=== PATIENT | male | born 1975 | race Caucasian/White ===

== ENCOUNTER 2019-12-28 07:52 | Emergency (ER) | payer SELFPAY ==
--- NOTE | 2019-12-28 08:24 | PDOC ---
Rapid Medical Evaluation Time Seen by Provider: 12/28/19 08:14 Medical Evaluation: Allergies Allergy/AdvReac Type Severity Reaction Status Date / Time No Known Allergies Allergy Verified 12/28/19 08:15 12/28/19 08:15 CC: 1 1/2 months of vomiting, weakness, decreased taste, denies med hx, no pcp visit in 7 years Exam: elevated BP, no abd tenderness, Plan: labs, urine, cxr Discharge Disposition - Diagnosis Vomiting - Referrals - Patient Instructions - Post Discharge Activity
[2019-12-28] MEDS ORDERED: SODIUM CHLORIDE 1,000 ML IV STA ×2 (08:25→10:42)
[2019-12-28] MEDS ORDERED: PANTOPRAZOLE SODIUM 40 MG VIAL IVPUSH ONE (08:25)
[2019-12-28] MEDS ORDERED: PANTOPRAZOLE SODIUM 40 MG VIAL ONE (08:44)
[2019-12-28] MEDS ORDERED: ONDANSETRON 4 MG/2 ML VIAL IVPUSH ONE (08:49)
--- NOTE | 2019-12-28 08:50 | PDOC ---
History of Present Illness - General Chief Complaint: Nausea/Vomiting Stated Complaint: WEAKNESS Time Seen by Provider: 12/28/19 08:14 History Source: Patient - History of Present Illness Initial Comments: 12/28/19 09:51 44 yo male no known sig medical hx (from [place], has not seen a Doctor for 7 years) presents to the ED for 45 days of generalized weakness, nausea without vomiting and increased urination. Pt states he has never had similar symptoms in the past, denies CP, SOB, abdominal pain, fevers, changes in bowel or bladder habits. Pt states he does not have insurance and does not have a way to see a Doctor on discharge Past History - Medical History Allergies/Adverse Reactions: Allergies Allergy/AdvReac Type Severity Reaction Status Date / Time No Known Allergies Allergy Verified 12/28/19 08:15 Home Medications: Ambulatory Orders Metformin HCl [Glucophage] 500 mg PO BID #14 tablet 12/28/19 COPD: No - Immunization History Immunization Up to Date: No - Psycho-Social/Smoking History Smoking History: Never smoked - Substance Abuse Hx (Audit-C & DAST Scrn) How often the patient has a drink containing alcohol: Never Score: In Men: 4 or > Positive; In Women: 3 or > Positive: 0 Screen Result (Pos requires Nsg. Audit-10AR): Negative In the last yr the pt used illegal drug/Rx for NonMed reason: No Score: Yes response is considered Positive: 0 Screen Result (Positive result requires Nsg. DAST-10): Negative Review of Systems - Review of Systems Constitutional: Yes: Symptoms Reported HEENTM: Yes: Symptoms Reported Respiratory: Yes: Symptoms reported Cardiac (ROS): Yes: Symptoms Reported ABD/GI: Yes: Symptoms Reported : Yes: Symptoms Reported Musculoskeletal: Yes: Symptoms Reported Integumentary: Yes: Symptoms Reported Neurological: Yes: Symptoms reported *Physical Exam - Vital Signs Last Vital Signs Temp Pulse Resp BP Pulse Ox 78 20 162/110 H 97 12/28/19 08:18 12/28/19 08:18 12/28/19 08:18 12/28/19 08:18 - Physical Exam General Appearance: Yes: Nourished, Appropriately Dressed. No: Apparent Distress HEENT: positive: EOMI, JONA Neck: positive: Supple. negative: Carotid bruit Respiratory/Chest: positive: Lungs Clear, Normal Breath Sounds. negative: Respiratory Distress, Accessory Muscle Use, Rapid RR, Crackles, Rales, Rhonchi, Stridor, Wheezing Vascular Pulses: Dorsalis-Pedis (R): 4+, Doralis-Pedis (L): 4+ Gastrointestinal/Abdominal: positive: Flat, Soft. negative: Pulsatile Mass, Protuberent, Distended, Guarding, Rebound, Tenderness Musculoskeletal: negative: CVA Tenderness Extremity: positive: Normal Capillary Refill, Normal Inspection, Normal Range of Motion Integumentary: positive: Normal Color, Dry, Warm Neurologic: positive: shaft tender II-XII NML intact, Fully Oriented, Alert, Normal Mood/Affect, Normal Response, Motor Strength 11/02 ED Treatment Course - LABORATORY CBC & Chemistry Diagram: 12/28/19 09:00 12/28/19 09:00 - ADDITIONAL ORDERS Additional order review: Laboratory Results 12/28/19 08:32 POC Glucometer 291 12/28/19 08:32 POC Glucometer 291 Medical Decision Making - Medical Decision Making 12/28/19 08:48 44 yo male no known sig medical hx (from [place], [place] years, has not seen a Doctor for 7 years) presents to the ED for 45 days of generalized weakness, nausea without vomiting and increased urination. Pt states he has never had similar symptoms in the past, denies CP, SOB, abdominal pain, fevers, changes in bowel or bladder habits. Pt states he does not have insurance and does not have a way to see a Doctor on discharge French speaking patient, hurricane tracker number [id number] Frederic Vitals show increased BP to 162 otherwise unremarkable Finger stick BG elevated, will do labs to r/o DKA. Give 1L NS Labs neg for anion gap, pH WNL beta hydroxybuterate elevated and BS 299 Will give 1 more L NS and reassess BG EKG NSR without signs of acute ischemia 12/28/19 13:10 Improved BS to 200 from 299 after 2L NS Pt reports improvement of symptoms Called Primary Clinic state [facility] pt can follow up on Sat at 2 pm Pt given Metformin from in hospital pharmacy Pt given strict discharge instructions, pt understands DC plan Discharge - Discharge Information Problems reviewed: Yes Clinical Impression/Diagnosis: Vomiting, New onset type 2 diabetes mellitus Disposition: HOME - Admission No - Additional Discharge Information Prescriptions: Metformin HCl [Glucophage] 500 mg PO BID #14 tablet - Follow up/Referral Referrals: [facility] [place] [Provider Group] - Patient Discharge Instructions Patient Printed Discharge Instructions: Type 2 Diabetes Additional Instructions: Please make it to your appointment this week with the primary doctor referred to you. Take the medication Metformin as prescribed 2 times per day until you see the primary doctor. Return to the ER for new or concerning symptoms. Thank you Print Language: SLOVAK - Post Discharge Activity
[2019-12-28 09:04] VITALS: BMI 27.9
[2019-12-28 09:46] LABS: BASO % 0.6 % (0-2.0); EOS % 0.4 % (0-4.5); HEMATOCRIT 52.1 % (35.4-49); HEMOGLOBIN 17.4 GM/dL (11.7-16.9); LYMPH % 24.8 % (8-40); MCH 28.8 pg (25.7-33.7); MCHC 33.5 g/dl (32.0-35.9); MEAN CELL VOLUME 85.9 fl (80-96); MEAN PLT VOLUME 9.6 fl (7.5-11.1); MONO % 6.1 % (3.8-10.2); NEUT % 68.1 % (42.8-82.8); PLATELET COUNT 263 K/MM3 (134-434); RBC 6.06 M/mm3 (4.00-5.60); RDW 13.1 % (11.9-15.9); WHITE BLOOD COUNT 9.5 K/mm3 (4.0-10.0)
[2019-12-28 09:50] LABS: VENOUS BASE EXCESS -1.7 mmol/L (-2-2); VENOUS O2 SATURATION 77.4 % (70-80); VENOUS PCO2 50.2 mmHg (38-52); VENOUS PH 7.321 (7.310-7.410)
[2019-12-28 10:10] LABS: URINE APPEARANCE Clear; URINE BILIRUBIN Negative (NEGATIVE); URINE COLOR Yellow; URINE GLUCOSE (UA) 2+ (NEGATIVE); URINE KETONE 1+ (NEGATIVE); URINE LEUK ESTERASE Negative (NEGATIVE); URINE NITRITE Negative (NEGATIVE); URINE PROTEIN 1+ (NEGATIVE); URINE UROBILINOGEN 0.2 mg/dL (0.2-1.0)
[2019-12-28 10:14] LABS: ALBUMIN 4.1 g/dl (3.4-5.0); BLOOD UREA NITROGEN 12.6 mg/dL (7-18); CALCIUM 9.2 mg/dL (8.5-10.1); MAGNESIUM 2.1 mg/dL (1.8-2.4); POTASSIUM 4.2 mmol/L (3.5-5.1); TOT PROT 8.5 g/dl (6.4-8.2)
[2019-12-28 10:16] LABS: BILIRUBIN,TOTAL 0.6 mg/dL (0.2-1)
--- NOTE | 2019-12-28 11:13 | EKG ---
Test Reason : Blood Pressure : / mmHG Vent. Rate : 057 BPM Atrial Rate : 057 BPM P-R Int : 156 ms QRS Dur : 094 ms QT Int : 414 ms P-R-T Axes : 053 -13 007 degrees QTc Int : 402 ms SINUS BRADYCARDIA MINIMAL VOLTAGE CRITERIA FOR LVH, MAY BE NORMAL VARIANT BORDERLINE ECG NO PREVIOUS ECGS AVAILABLE Confirmed by MERVIN EUCEDA MD ([id number]) on 12/28/2019 11:13:19 AM Referred By: Confirmed By:MERVIN EUCEDA MD
--- NOTE | 2019-12-28 11:58 | PDOC ---
Attending Attestation - Resident Resident Name: Jose A Harvey - ED Attending Attestation I have performed the following: I have examined & evaluated the patient, The case was reviewed & discussed with the resident, I agree w/resident's findings & plan, Exceptions are as noted - HPI HPI: 12/28/19 11:52 44 yo male no known pmhx here with c/o bad taste in mouth, and polyuria, polydipsia, and nausea. no vomiting. does report some amount of weight loss, unsure of amount but clothes fitting much bigger recently. no cp no sob. no f/c no abd pain. no change to stool. no vision changes. no headache. pt states he moved here from [place] 7 yrs ago, has not seen a doctor in that time. no other current complaints. no dysuria. no sick contacts. - Physicial Exam PE: 12/28/19 11:55 Awake alert no acute distress lungs are clear bilaterally heart is regular without any murmurs rubs or gallops abdomen is soft and nontender extremities are warm well perfused patient is awake alert and oriented x3 skin is warm and dry no rash - Medical Decision Making 12/28/19 11:55 44-year-old male no past medical history but no primary physician here today complaining of polyuria polydipsia and nausea. Differential includes hyperglycemia DKA hyperosmolar syndrome, anemia, dehydration, TX considered due to possibly of new diagnosis of diabetes and overall fatigue on exam patient is neurologically fully intact and has a nontender abdomen. Plan CBC CMP hemoglobin A1c beta hydroxybutyrate patient was given 2 L of normal saline as well as 4 mg of Zofran for his nausea. EKG was obtained showing a normal sinus rhythm with mild bradycardia rate of 57 T wave inversions in lead III and flattened aVF otherwise nonspecific changes 12/28/19 17:40 pt was given metformin. scheduled appointment with patient for next few days with maria luz joseph 12/28/19 17:40 hgb A1c is 11. Heart Score/ECG Review #1 General ECG Interpretation: Sinus Rhythm, Normal Rate, Normal Intervals, No acute ischemic changes (TWI III, flattened AVF. left axis. sinus bradycardia.) Discharge - Discharge Information Problems reviewed: Yes Clinical Impression/Diagnosis: Vomiting, New onset type 2 diabetes mellitus Disposition: HOME - Additional Discharge Information Prescriptions: Metformin HCl [Glucophage] 500 mg PO BID #14 tablet - Follow up/Referral Referrals: [facility] [place] [Provider Group] - Patient Discharge Instructions Patient Printed Discharge Instructions: Type 2 Diabetes Additional Instructions: Please make it to your appointment this week with the primary doctor referred to you. Take the medication Metformin as prescribed 2 times per day until you see the primary doctor. Return to the ER for new or concerning symptoms. Thank you Print Language: DANISH - Post Discharge Activity
[2019-12-28 13:03] VITALS: BP 138/93; PULSE 67; TEMP 98.5
== END 2019-12-28 13:12 | disposition home or self-care (01) ==
LOC: JER 07:52
PROC: 3E0337Z Introduction of Electrolytic and Water Balance Substance into Peripheral Vein, Percutaneous Approach (ICD-10-PCS; principal; 2019-12-28)
PROC: 3E033GC Introduction of Other Therapeutic Substance into Peripheral Vein, Percutaneous Approach (ICD-10-PCS; principal; 2019-12-28)
DX: R11.10 Vomiting, unspecified (principal); E11.9 Type 2 diabetes mellitus without complications
CPT/HCPCS: 36415; 71045-TC-FY; 76705-TC; 80053; 81003; 82010; 82550; 82803; 82962; 83036; 83690; 83735; 84484; 85025; 93005; 93010; 99285-25; U0003